=== PATIENT | female | born 1990 | race African-American/Black ===

== ENCOUNTER 2023-02-10 15:03 | Inpatient (IN) ==
--- NOTE | 2023-02-16 16:02 | PAT Medication Instructions ---
Medication Instructions Date of Service February 16, 2023 Home Medications 1 tab PO QAM DO NOT take the morning of surgery 1 tab PO QAM Other Notes NOTHING TO EAT OR DRINK AFTER MIDNIGHT. If you have any questions please call us at [phone] or [phone] or [phone] or [phone]
--- NOTE | 2023-02-19 14:40 | Anesthesiology Consultation ---
Date of Service February 19, 2023 Assessment & Plan (1) Encounter for pre-operative examination: Chart Review Chart Review: Acceptable Risk for Surgery and Patient seen in Pre Admission Testing Teaching & Discussion Pre-Anesthesia Teaching/Discussion Notes: Instructed NPO after midnight before surgery, except medications with 15 cc of water. Medication instructions provided according to the PAT guidelines. History Surgery Operation Date: 03/01/23 07:30 Proposed Procedures p Repeat Section in LD - Paul Halina Monte MD Height/Weight Height: 5 ft 1.02 in Weight: 76.3 kg Allergies Allergy/AdvReac Type Severity Reaction Status Date / Time No Known Allergies Allergy Verified 02/12/23 13:51 Medications Home Medications Medication Instructions Recorded Confirmed Last Taken 1 tab PO QAM 02/12/23 02/12/23 Unknown Past Medical History Medical History GERD (gastroesophageal reflux disease) during current Patient denies h/o stroke, seizures, heart attack, heart failure, DM, HTN, blood clots/DVTs, scoliosis or blood transfusions. Exercise / Class Metabolic Activity II 4-5 Yardwork/Stairs/Walk up hill (denies chest discomfort or shortness of breath with 1 FOS) Past Surgical History Surgical History History of x 2; pt denies any complications with or neuraxial anesthesia Denies any lumbar surgeries. Past Anesthesia History No Hx of Anesthesia Complications and No Family Hx of Anesthesia Complications History of PONV No Hx of PONV and Hx of Motion Sickness Social History Smoking Status: Never smoker Do You Dip or Chew Tobacco: No Hx Alcohol Use: Yes alcohol intake frequency: holidays/special occasions only Hx Substance Use: No substance use type: does not use Review of Systems Patient denies chest pain, shortness of breath, dyspnea on exertion, snoring, witnessed apneas, fever, chills, cough, wheezing, or palpitations. Physical Exam Vital Signs Vitals BP 106/82 P 97 TEMP 98.9 SP02 97% on RA RESP 17 Physical Patient resting comfortably in chair in no acute distress, alert and oriented, responding appropriately throughout visit Full cervical extension range of motion without pain TMD 3.5 finger breadths Mallampati Score 2 Dentition: intact, denies chipped or loose teeth, caps/crowns, implants or bridges Lungs: normal respiratory effort. Good air movement, clear throughout to auscultation, no adventitious breath sounds Cardiac: regular rate and rhythm, no murmurs noted Carotid arteries: negative bruit bilat Musculoskeletal: back normal to inspection; nontender to palpation of spinous processes, paraspinal muscles; no evident spinal misalignment Lab Results Anesthesia Preop Results Results Anesthesia Widget: WBC 7.22 K/ul (4.8-10.8) 02/19/23 Hgb 12.7 g/dl (12.0-16.0) 02/19/23 Hct 36.0 % (37.0-47.0) L 02/19/23 Plt 153 K/uL (130-400) 02/19/23 Na 138 mmol/L (136-145) 02/19/23 K 3.8 mmol/L (3.5-5.1) 02/19/23 Cl 106 mmol/L (98-107) 02/19/23 CO2 22 mmol/L (21-32) 02/19/23 BUN 4 mg/dl (6-23) L 02/19/23 Creat 0.47 mg/dl (0.6-1.2) L 02/19/23 Glucose Level 101 mg/dl (70-99(Fasting)) H 02/19/23 PT 10.0 Seconds (9.0-12.0) 02/19/23 PTT 25.1 Seconds (21.0-31.0) 02/19/23 INR 0.9 (0.9-1.1) 02/19/23 Blood Type B Positive 02/19/23 Antibody Screen NEGATIVE 02/19/23
--- NOTE | 2023-02-25 09:10 | History & Physical Report ---
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 History of Present Illness Chief Complaint: Intrauterine at 39+ weeks gestation. 2 previous sections. Primary Care Provider: NO PCP Patient is a 32-year-old 3 para 2. Patient is in good general health. Patient [place] She has been well dated with a first trimester ultrasound. Her due date for this is 03/06/2023. Her first section was in 2016. She delivered a 9 pound male at 38 weeks gestation. She was diagnosed with cephalopelvic disproportion. Second delivery was in 2019 she delivered a 7 pound 3 ounce male by repeat section at 38 weeks gestation. Patient has had no problems. And presently is being scheduled for repeat section at 39+ weeks gestation. Allergies Allergy/AdvReac Type Severity Reaction Status Date / Time No Known Allergies Allergy Verified 02/12/23 13:51 Home Medications Medication Instructions Recorded Confirmed Type 1 tab PO QAM 02/12/23 02/12/23 History Past Med/Surg History Medical History GERD (gastroesophageal reflux disease) during current Surgical History History of x 2; pt denies any complications with or neuraxial anesthesia Social History Smoking Status: Never smoker Second Hand Exposure: No; Do You Dip or Chew Tobacco: No; Hx Alcohol Use: Yes Hx Substance Use: No Preferred Language: Telugu Communication Ability: Effective Bulk Filler Required: No Current Living Situation: Family Feels Safe at Home: Yes Assistive Devices: None Physical Exam Physical Exam: Patient is a well-developed well-nourished black female alert oriented x3 cooperative in no acute distress. Neck was supple trachea midline there was no cervical adenopathy. Ears had a normal light reflex bilaterally. Chest was clear to auscultation and percussion. Heart had a regular rhythm S1 and S2 were normal. Abdominal exam revealed an estimated weight of over 8 pounds. There was a well-healed Pfannenstiel incision. There was no CVA tenderness. No calf tenderness. Pelvic exam revealed a floating presentation with a closed cervix. Results & Data Results & Data Diagnostic Findings Intrauterine at term. Estimated weight of over 8 pounds.
[2023-03-01] MEDS ORDERED: CITRIC ACID/SODIUM CITRATE 15 ML UDC PO SCH (06:00)
[2023-03-01] MEDS: LACTATED RINGER'S 1,000 ML IV SCH (06:10)
[2023-03-01 06:16] LABS: Basophils # (auto) 0.01 K/uL (0.00-0.20); Basophils % (auto) 0.1 %; Eosinophils # (auto) 0.03 K/uL (0.00-0.50); Eosinophils % (auto) 0.4 %; Hematocrit (blood only) 37.5 % (37.0-47.0); Immature Granulocytes # (auto) 0.03 K/uL (0.01-0.20); Immature Granulocytes % (auto) 0.4 %; Lymphocytes # (auto) 1.09 K/uL (1.20-3.40); Lymphocytes % (auto) 15.9 %; Mean Corpuscular Hemoglobin 29.8 pg (25.0-34.0); Mean Corpuscular Hgb Conc 34.7 g/dL (32.0-36.0); Mean Platelet Volume 12.8 fL (9.4-12.4); Monocytes # (auto) 0.66 K/uL (0.11-0.59); Monocytes % (auto) 9.6 %; Neutrophils # (auto) 5.04 K/uL (1.40-6.50); Neutrophils % (auto) 73.6 %; Platelet Count 139 K/uL (130-400); RDW Coefficient of Variation 14.3 % (11.5-14.5); RDW Standard Deviation 44.2 fL (36.4-46.3); Red Blood Count 4.36 M/uL (4.20-5.40); White Blood Count 6.86 K/ul (4.8-10.8)
[2023-03-01] MEDS ORDERED: fentaNYL citrate PF 100 MCG/2 ML VIAL ONE (06:55)
[2023-03-01] MEDS ORDERED: OXYTOCIN 10 UNITS/ML VIAL ONE (06:55)
[2023-03-01] MEDS ORDERED: PHENYLEPHRINE 100MCG/ML 5ML SYR ONE (06:55)
[2023-03-01] MEDS ORDERED: ONDANSETRON INJ 2 MG/ML 2 ML VIAL ONE (06:55)
[2023-03-01] MEDS ORDERED: MoRPHine SULFATE PF 1 MG/ML 10 ML AMP/VIAL ONE (06:55)
[2023-03-01] MEDS ORDERED: cefOXitin 2,000 MG in DEXTROSE 5 % MINI-B 50 ML IV STA (08:00)
--- NOTE | 2023-03-01 08:30 | History & Physical Bridge Note ---
Date of Service March 01, 2023 History & Physical Bridge Note I have examined the patient, reviewed the History & Physical and in the interval since the performance of the History & Physical I have noted the following changes of clinical significance: no changes noted
[2023-03-01] MEDS ORDERED: PROMETHAZINE HCL 6.25 MG in SODIUM CHLORIDE 0.9% 50 ML IV PRN (08:38)
[2023-03-01] MEDS ORDERED: ONDANSETRON INJ 2 MG/ML 2 ML VIAL IV PRN (08:38)
[2023-03-01] MEDS ORDERED: NALBUPHINE HCL INJ 10 MG/ML AMP IV PRN (08:38)
[2023-03-01] MEDS ORDERED: NALOXONE HCL 1 MG in SODIUM CHLORIDE 0.9% 1,000 ML IV PRN (08:38)
[2023-03-01] MEDS ORDERED: NALOXONE HCL 0.4 MG/1 ML VIAL/CARP IV PRN (08:38)
[2023-03-01] MEDS ORDERED: diphenhydrAMINE 50 MG/ML VIAL IV PRN (08:38)
[2023-03-01] MEDS ORDERED: MoRPHine SULFATE PF 1 MG/ML 10 ML AMP/VIAL INT SPINAL ONE (08:38)
[2023-03-01] MEDS ORDERED: HYDROmorphone INJ 0.5 MG/0.5 ML SYR IV PRN (08:38)
[2023-03-01] MEDS ORDERED: NALOXONE HCL 0.08 MG in SYRINGE 1.8 ML IV PRN (08:38)
[2023-03-01] MEDS ORDERED: ePHEDrine sulfate 50 MG/ML AMP IV PRN (08:38)
[2023-03-01] MEDS ORDERED: KETOROLAC 30 MG/ML VIAL IV PRN (08:38)
[2023-03-01] MEDS ORDERED: LACTATED RINGER'S 500 ML IV PRN (08:38)
[2023-03-01] MEDS ORDERED: DC INTRASPINAL MORPHINE SCH (08:45)
[2023-03-01] MEDS ORDERED: SODIUM CHLORIDE 0.9% 1,000 ML IV SCH (08:45)
[2023-03-01] MEDS ORDERED: NO NARCOTICS OR SEDATIVES SCH (08:45)
[2023-03-01] MEDS ORDERED: OXYTOCIN 10 UNITS/ML 10ML VIAL IM ONE (09:14)
[2023-03-01] MEDS ORDERED: SENNA 8.6 MG TAB PO PRN (09:40)
[2023-03-01] MEDS ORDERED: HYDROCORTISONE ACETATE 25 MG SUPP PR PRN (09:40)
[2023-03-01] MEDS ORDERED: BENZOCAINE 20% SPRY 85 APPLN/85 GM CAN EXT PRN (09:40)
[2023-03-01] MEDS ORDERED: DIPHTHERIA/TETANUS/PERTUSSIS Vaccine (Tdap, Age 7+yrs) 0.5mL SYR/VL IM ONE (09:40)
[2023-03-01] MEDS ORDERED: MAGNESIUM HYDROXIDE SUSP 30 ML UDC PO PRN (09:40)
--- NOTE | 2023-03-01 09:52 | Operative Report ---
Post Operative Report Pre & Post Diagnosis Operation Date: 03/01/23 07:30 Pre-Op Diagnosis: Term desires repeat section Post-Op Diagnosis: Term desires repeat section I identified the patient and participated in the time-out.: Yes Procedure Operation Date: 03/01/23 07:30 Actual Procedures p Repeat Section living male child at 0854(Bilateral) - Paul Monte MD Surgeon Paul Monte MD Electronic Device Monitor Dr. Aguirre Estimated Blood Loss 500 Findings Consistent with Post-Op Diagnosis nuchal cord x 1 vertex presentation Specimens placenta Anesthesia Type General Regional Complications none Indications previous section x2 Description of Procedure Patient was brought to the OR correctly identified by armband and conversation. Spinal anesthesia was administered. Ferguson catheter was inserted aseptically into the bladder. Lower abdomen painted with an alcohol-based sterilizing solution. Patient was draped in the usual sterile fashion. Timeout was taken. Spinal was tested. Pfannenstiel incision was made through her previous scar. Incision was carried down to the anterior fascia by blunt and sharp dissection. Hemostasis was secured by electrocauterization. Fascia was incised laterally. Then from the underlying muscle by blunt and sharp dissection. Recti muscles were in the midline. Peritoneum was carefully raised and entered. Lower uterine segment was exposed with the bladder blade. There was a lot of vascularity noted in this area. The lower uterine incision was made first with a knife and then bluntly with the scissors. Clear amniotic fluid was noted at this time. A vectus retractor was applied to the head. The head was delivered with fundal pressure. A nuchal cord was reduced over the head. The shoulders were then delivered without difficulty. Cord was allowed to pulse for 1 minute. Cord was cut cord blood was taken. The infant was handed off to the stock patcher who is present at the time of the delivery. Placenta was removed manually. Uterus tubes and ovaries were brought out through the incision. 10 units of Pett was injected into the myometrium. There were some bleeding pads inside the uterus and these were covered with 6 hemostatic foam. The myometrial defect was delineated with a ring forceps on each side. Heavy chromic suture was used to approximate the myometrium in a continuous fashion. Following this a second layer was placed with a heavy-duty Vicryl. The sutures were placed in a horizontal fashion and approximated the myometrium above the previous approximation. 2 interrupted [id number] sutures of Vicryl were placed on the patient's left side to create additional hemostasis and also a horizontal suture was placed below the suture line on the patient's left side to prevent any hematoma formation. Careful inspection of the incisional line revealed it to be hemostatic. Pelvis was cleansed of all blood clots and debris. Uterus was returned to the abdominal cavity. Peritoneal edges were identified with Kellys. Then approximated with a continuous mattress suture of chromic catgut. Recti muscles were approximated with interrupted [id number] suture of chromic catgut. Fascia was closed with a continuous interlocking suture of Vicryl on each side tied in the midline. Subcu was approximated with a running plain. The skin edges were approximated with staple clips. Patient tolerated the procedure well left the OR in good condition. Estimated blood loss was 500 mL. I attest to the content of the Intraoperative Record and any orders documented therein. Any exceptions are noted below.
--- NOTE | 2023-03-01 09:52 | Anesthesiology Progress Note ---
Date of Service March 01, 2023 Anesthesia Post Procedure Vital Signs Vital Signs: Pulse Resp BP Pulse Ox 03/01/23 05:52 18 03/01/23 09:47 89 98 03/01/23 09:46 93 H 110/60 03/01/23 07:02 96 H 123/60 03/01/23 05:40 99 H 111/70 Transfer of Care Handoff Completed per policy Notes Mental Status: alert / awake / arousable and participated in evaluation Patient Amnestic to Procedure: No Nausea / Vomiting: adequately controlled Pain: adequately controlled Airway Patency, RR, SpO2: stable & adequate BP & HR: stable & adequate Hydration State: stable & adequate Neuraxial Anesthesia: was administered and sensory block is resolving Anesthetic Complications: no major complications apparent and Pt Satisfied with anesthetic care
[2023-03-01] MEDS: OXYTOCIN 20 UNITS in LACTATED RINGER'S 1,000 ML IV SCH ×2 (12:13→20:36)
[2023-03-01] MEDS: SIMETHICONE 80 MG CHEW PO SCH ×3 (12:44→23:24)
[2023-03-01] MEDS ORDERED: GELATIN SPONGE SZ 100 ONE (17:59)
[2023-03-01] MEDS: DOCUSATE SODIUM 100 MG CAP PO SCH (23:24)
[2023-03-02] MEDS ORDERED: ZOLPIDEM TARTRATE 5 MG TAB PO PRN (02:39)
[2023-03-02] MEDS ORDERED: PROMETHAZINE HCL 25 MG in SODIUM CHLORIDE 0.9% 50 ML IV PRN (02:39)
[2023-03-02] MEDS ORDERED: diphenhydrAMINE Capsule 25 MG CAP PO PRN (02:39)
[2023-03-02] MEDS ORDERED: ONDANSETRON INJ 2 MG/ML 2 ML VIAL IV PRN (02:39)
[2023-03-02] MEDS ORDERED: diphenhydrAMINE 50 MG/ML VIAL IV PRN (02:39)
[2023-03-02] MEDS ORDERED: MEPERIDINE HCL 50 MG/ML CARP IV PRN (02:39)
[2023-03-02] MEDS ORDERED: KETOROLAC 30 MG/ML VIAL IV PRN (02:39)
[2023-03-02] MEDS: IBUPROFEN 600 MG TAB PO PRN ×4 (05:40→22:08)
[2023-03-02] MEDS ORDERED: cefOXitin 2,000 MG in DEXTROSE 5 % MINI-B 50 ML IV SCH (06:00)
[2023-03-02] MEDS: LACTATED RINGER'S 1,000 ML IV SCH ×4 (06:21→06:46)
[2023-03-02] MEDS: oxyCODONE/ACETAMINOPHEN 5mg/325mg TAB PO PRN ×4 (06:46→22:09)
[2023-03-02 08:02] LABS: Basophils # (auto) 0.03 K/uL (0.00-0.20); Basophils % (auto) 0.3 %; Eosinophils # (auto) 0.03 K/uL (0.00-0.50); Eosinophils % (auto) 0.3 %; Hematocrit (blood only) 34.2 % (37.0-47.0); Immature Granulocytes # (auto) 0.04 K/uL (0.01-0.20); Immature Granulocytes % (auto) 0.5 %; Lymphocytes # (auto) 0.68 K/uL (1.20-3.40); Lymphocytes % (auto) 7.7 %; Mean Corpuscular Hemoglobin 30.2 pg (25.0-34.0); Mean Corpuscular Hgb Conc 35.1 g/dL (32.0-36.0); Mean Corpuscular Volume 86.1 fL (80.0-100.0); Mean Platelet Volume 12.6 fL (9.4-12.4); Monocytes # (auto) 0.69 K/uL (0.11-0.59); Monocytes % (auto) 7.8 %; Neutrophils # (auto) 7.39 K/uL (1.40-6.50); Neutrophils % (auto) 83.4 %; Platelet Count 127 K/uL (130-400); RDW Coefficient of Variation 14.3 % (11.5-14.5); RDW Standard Deviation 44.5 fL (36.4-46.3); Red Blood Count 3.97 M/uL (4.20-5.40); White Blood Count 8.86 K/ul (4.8-10.8)
[2023-03-02] MEDS: SIMETHICONE 80 MG CHEW PO SCH ×4 (09:03→20:26)
[2023-03-02] MEDS: FERROUS SULFATE 325 MG TAB PO SCH (09:03)
[2023-03-02] MEDS: PRENATAL VITAMIN 1 TAB PO SCH (09:03)
[2023-03-02] MEDS: DOCUSATE SODIUM 100 MG CAP PO SCH ×2 (09:03→20:26)
--- NOTE | 2023-03-02 09:28 | Obstetrical Progress Note ---
Date of Service March 02, 2023 Assessment & Plan Admission and Anticipated Discharge Date Admission Date: March 01, 2023 Subjective abdomen soft and non tender bandage removed incision is clean and dry passing flatus post operative hgb 12 no calf tenderness ambulating well Results & Data Vital Signs (Past 12 Hours) Vital Signs Temp Pulse Resp BP Pulse Ox O2 Del Method 03/02/23 02:00 16 96 03/02/23 01:00 16 96 03/02/23 00:00 16 95 03/01/23 22:00 16 95 03/02/23 03:50 36.7 C 78 16 100/62 96 Room Air 03/01/23 23:20 16 95 03/01/23 23:20 36.6 C 81 16 88/64 L 95 Room Air
[2023-03-02] MEDS ORDERED: bisacodyL 5 MG TABEC PO SCH (20:00)
[2023-03-03] MEDS: IBUPROFEN 600 MG TAB PO PRN ×2 (04:47→09:54)
[2023-03-03] MEDS: oxyCODONE/ACETAMINOPHEN 5mg/325mg TAB PO PRN ×2 (04:48→09:55)
[2023-03-03 06:52] LABS: Hematocrit (blood only) 30.4 % (37.0-47.0); Hemoglobin 10.7 g/dl (12.0-16.0)
[2023-03-03] MEDS: DOCUSATE SODIUM 100 MG CAP PO SCH (07:29)
[2023-03-03] MEDS: SIMETHICONE 80 MG CHEW PO SCH (07:29)
[2023-03-03] MEDS: PRENATAL VITAMIN 1 TAB PO SCH (07:29)
[2023-03-03] MEDS: FERROUS SULFATE 325 MG TAB PO SCH (07:29)
--- NOTE | 2023-03-03 09:06 | Obstetrical Progress Note ---
Date of Service March 03, 2023 Assessment & Plan Admission and Anticipated Discharge Date Admission Date: March 01, 2023 Subjective abdomen soft and non tender incision is clean and dry no calf tenderness ambulating well vaginal bleeding scant hgb 10.7 Results & Data Vital Signs (Past 12 Hours) Vital Signs Temp Pulse Resp BP Pulse Ox O2 Del Method 03/03/23 07:20 36.7 C 88 18 95/65 L 97 Room Air 03/02/23 23:15 36.7 C 87 17 100/72 98 Room Air
--- NOTE | 2023-03-03 09:17 | Delivery Summary ---
Vaginal Delivery Summary Date of Service March 03, 2023 Vaginal Delivery Summary Patient was followed in my office for care and delivery. We did not see the patient until she was about 1 month shy of her due date. Patient had a history of 2 previous sections due to cephalopelvic disproportion. Patient has been well dated with an early ultrasound. We scheduled repeat section at approximately 39 weeks and 2 days. The day of admission she came to the hospital was given prophylactic antibiotics. Taken to the OR where she underwent repeat section without any problems and minimal blood loss. Preoperative hemoglobin was 13 postoperative hemoglobin was a little 10.7. Postoperatively the patient did well. She remained afebrile. Bowel sounds returned within 24 hours. The day of admission she was ambulating well eating well. Incision was clean and dry. He was given usual postoperative instructions to return to the office in a week for removal of lauryn.
[2023-03-03] MEDS ORDERED: bisacodyL 10 MG SUPP PR PRN (09:40)
== END 2023-03-03 10:52 | disposition home or self-care (01) | DRG 788 ==
LOC: 4S1 03-01 05:34 → EDSTATUS 03-01 07:30 → 4E2 03-01 12:19